=== PATIENT | male | born 1985 | race Caucasian/White ===

== ENCOUNTER 2017-05-26 14:50 | Emergency (ER) | payer OTHER ==
[~2017-05-26] VITALS: Ht 185.4 cm; Wt 117.9 kg
[2017-05-26] MEDS ORDERED: IBUPROFEN 600600 M1 PO (15:52)
== END 2017-05-26 16:37 | disposition home or self-care (01) ==
LOC: ER 14:50
DX: J06.9 Acute upper respiratory infection, unspecified (principal); I10 Essential (primary) hypertension; J45.909 Unspecified asthma, uncomplicated